=== PATIENT | male | born 1990 | race Caucasian/White ===

== ENCOUNTER 2017-10-24 02:01 | Emergency (ER) | payer MEDICAID, OTHER ==
[~2017-10-24] VITALS: Ht 172.7 cm; Wt 77.1 kg
[2017-10-24] MEDS ORDERED: QUET400T PO (02:19)
[2017-10-24] MEDS ORDERED: CLON2TAB PO (02:19)
[2017-10-24] MEDS ORDERED: ZYPREXA (02:19)
--- NOTE | 2017-10-24 02:26 | NUR ---
Patient ambulated to ER with steady gait, c/o hallucinations, hearing voices, "feeling like he's having a meltdown", reports he is homeless and has no meds for 2 weeks now, states has history schizo affective disorder.
--- NOTE | 2017-10-24 02:27 | NUR ---
Dr. Mueller at bedside for MSE.
[2017-10-24] MEDS ORDERED: QUETIAPINE FUMARATE 25 MG TABLET PO ONE (02:45)
[2017-10-24] MEDS ORDERED: QUETIAPINE FUMARATE 200 MG TABLET ONE (02:59)
[2017-10-24 03:11] LABS: BASOPHILS % (AUTO) 0.4 % (0.0-2.0); EOSINOPHILS # (AUTO) 0.3 K/uL (0.0-0.7); EOSINOPHILS % (AUTO) 4.4 % (0.0-7.0); HEMATOCRIT 37.8 % (36.7-47.1); HEMOGLOBIN 13.1 g/dL (12.5-16.3); LYMPHOCYTES # (AUTO) 1.8 K/uL (20.0-40.0); LYMPHOCYTES % (AUTO) 23.1 % (20.5-51.5); MEAN CORPUSCULAR HEMOGLOBIN 30.8 uug (23.8-33.4); MEAN CORPUSCULAR HGB CONC 35 g/dL (32.5-36.3); MEAN CORPUSCULAR VOLUME 88.9 fL (73.0-96.2); MONOCYTES # (AUTO) 0.8 K/uL (2.0-10.0); MONOCYTES % (AUTO) 9.8 % (0.0-11.0); NEUTROPHILS % (AUTO) 62.3 % (38.5-71.5); PLATELET COUNT (AUTO) 272 K/uL (152-348); RED BLOOD CELL COUNT(AUTO) 4.25 MIL/uL (4.06-5.63)
[2017-10-24 03:17] LABS: CARBON DIOXIDE 26 mmol/L (21-32); CHLORIDE 103 mmol/L (98-107); CREATININE 0.8 mg/dL (0.6-1.3); GLUCOSE 88 mg/dL (74-106); POTASSIUM 3.3 mmol/L (3.5-5.1); UREA NITROGEN, BLOOD 14 mg/dL (7-18)
[2017-10-24 03:23] LABS: ALANINE AMINOTRANSFERASE 25 U/L (16-63); ALKALINE PHOSPHATASE 117 U/L (50-136); ASPARTATE AMINOTRANSFERASE 39 U/L (15-37); BILIRUBIN,DIRECT 0.1 mg/dL (0.0-0.2); BILIRUBIN,TOTAL 0.6 mg/dL (0.2-1.0); TOTAL PROTEIN, SERUM 7.1 g/dL (6.4-8.2)
[2017-10-24 03:25] LABS: *BILIRUBIN,URIN NEGATIVE (NEGATIVE); *BLOOD, URINE NEGATIVE (NEGATIVE); *CLARITY,URINE CLEAR (CLEAR); *COLOR,URINE YELLOW (YELLOW); *KETONES,URINE NEGATIVE (NEGATIVE); *PROTEIN,URINE NEGATIVE (NEGATIVE); *UROBILINOGEN,URINE 0.2 E.U./dl (NORMAL); LEUKOCYTE ESTERASE ,URINE NEGATIVE (NEGATIVE); NITRITE, URINE NEGATIVE (NEGATIVE); UGLUCOSE NEGATIVE (NEGATIVE)
[2017-10-24 03:25] LABS: ACETAMINOPHEN < 2.0 ug/mL (10-30)
--- NOTE | 2017-10-24 03:30 | NUR ---
Pt in bed watching TV.
[2017-10-24 03:31] LABS: ETHANOL < 3 MG/DL (0-0)
[2017-10-24 03:35] LABS: BACTERIA,URINE NONE SEEN /HPF (NONE SEEN); RBC,URINE 0-3 /HPF (0-3)
[2017-10-24 03:36] LABS: SQUAMOUS EPITHELIAL CELL,UR NONE SEEN /HPF (NONE SEEN)
[2017-10-24 03:37] LABS: *AMPHETAMINE, URINE POSITIVE (NEGATIVE); *BARBITURATE, URINE NEGATIVE (NEGATIVE); *CANNABINOID, URINE NEGATIVE (NEGATIVE); *COCCAINE, URINE NEGATIVE (NEGATIVE); *OPIATE, URINE NEGATIVE (NEGATIVE); *PHENCYCLIDINE SCREEN,URINE NEGATIVE (NEGATIVE)
--- NOTE | 2017-10-24 04:30 | NUR ---
Pt in bed watching TV. No acute signs of distress.
--- NOTE | 2017-10-24 05:00 | NUR ---
Pt sleeping, no acute signs of distress.
[2017-10-24] MEDS ORDERED: POTASSIUM CHLORIDE 10 MEQ TAB.PRT.SR PO ONE (05:15)
--- NOTE | 2017-10-24 05:15 | NUR ---
Called Abdulkadir Preston [facility] for patient psych evaluation.
[2017-10-24] MEDS ORDERED: POTASSIUM CHLORIDE 20 MEQ TAB.PRT.SR ONE (05:21)
--- NOTE | 2017-10-24 05:51 | NUR ---
Abdulkadir Preston LCSW arrived to ER for patient psych evaluation.
--- NOTE | 2017-10-24 06:04 | NUR ---
Pt sleeping in bed, no acute signs of distress.
--- NOTE | 2017-10-24 06:59 | NUR ---
Passed report to Bia BEATTY.
--- NOTE | 2017-10-24 08:11 | NUR ---
hospital sandwich and juices provided. pt ate with good appetite. pt refused the referral paper work saying that he does not need them. pt walks in steady gait. pt woth no sign of distress. pt not driving.
[2017-10-24 08:14] VITALS: BP 109/58
== END 2017-10-24 08:16 | disposition home or self-care (01) ==
LOC: ER 02:05
DX: F23 Brief psychotic disorder (principal); Z59.0 Homelessness; E87.6 Hypokalemia
CPT/HCPCS: 36415; 80048; 80076; 80307; 81001; 85025; 99284; A4663; G0480 ×2; G0481

== ENCOUNTER 2017-10-27 11:00 | Emergency (ER) | payer OTHER ==
[~2017-10-27] VITALS: Ht 170.2 cm; Wt 59.0 kg
[~2017-10-27 11:00] MED LIST: CLON2TAB PO; QUET400T PO; ZYPREXA
[2017-10-27] MEDS ORDERED: QUETIAPINE FUMARATE 25 MG TABLET PO ONE (11:15)
[2017-10-27] MEDS ORDERED: ARIPIPRAZOLE 2 MG TABLET PO ONE (11:15)
[2017-10-27] MEDS ORDERED: ARIPIPRAZOLE 5 MG TABLET ONE (11:19)
[2017-10-27] MEDS ORDERED: QUETIAPINE FUMARATE 200 MG TABLET ONE (11:19)
--- NOTE | 2017-10-27 11:30 | NUR ---
PATIENT WAS SEEN BY MD. DOSAGES OF MEDICATIONS CONFIRMED AND VERIFIED WITH DR SOARES AND WITH PATIENT. JUICE AND CRACKERS ALSO GIVEN TO PATIENT. PATIENT STATES HE DOES NOT DRIVE. HE STATES HE HAS SCHIZOPHRENIA AND NEEDS HIGH DOSAGES FOR IT TO HELP HIM. DC, RX (INCLUDING PRECAUTIONS) GIVEN AND EXPLAINED TO PATIENT WHO STATES HE UNDERSTANDS ALL INSTRUCTIONS.
== END 2017-10-27 11:37 | disposition home or self-care (01) ==
LOC: ER 11:00
DX: F20.9 Schizophrenia, unspecified (principal); F41.9 Anxiety disorder, unspecified; Z76.0 Encounter for issue of repeat prescription; Z59.0 Homelessness; Z88.8 Allergy status to other drugs, medicaments and biological substances
CPT/HCPCS: A4663